=== PATIENT | female | born 1980 | race African-American/Black ===

== ENCOUNTER 2017-11-30 13:40 | Emergency (ER) | payer OTHER ==
[2017-11-30 14:10] VITALS: BP 100/63; PULSE 68; TEMP 98.6; BMI 23.9
[2017-11-30] MEDS ORDERED: METOCLOPRAMIDE HCL INJECTION 10 MG/2 ML VIAL IM ONE (14:24)
[2017-11-30] MEDS ORDERED: ACETAMINOPHEN 500 MG TABLET (FP) PO ONE (14:25)
[2017-11-30] MEDS ORDERED: ACETAMINOPHEN 500 MG TABLET (FP) ONE (14:27)
[2017-11-30] MEDS ORDERED: METOCLOPRAMIDE HCL INJECTION 10 MG/2 ML VIAL ONE (14:27)
--- NOTE | 2017-11-30 14:32 | PDOC ---
History of Present Illness - General Chief Complaint: Migraine Headache Stated Complaint: Migraine Headache Time Seen by Provider: 11/30/17 14:17 History Source: Patient Exam Limitations: Clinical Condition - History of Present Illness Initial Comments: 11/30/17 14:30 Patient with history of migraine disorder being followed by neurologist present with complain of severe migraine with nausea and photophobia. Patient reported she saw the neurologist 4 days ago and prescription was sent to the pharmacy for her migraines but didn't get to go pick it up for her migraines. Patient reports she is scheduled for MRI in 4 days for by the neurologist. denies any other symptoms Timing/Duration: 1 hour Severity: moderate Past History - Past Medical History Allergies/Adverse Reactions: Allergies Allergy/AdvReac Type Severity Reaction Status Date / Time No Known Allergies Allergy Verified 11/30/17 14:07 Home Medications: Ambulatory Orders levETIRAcetam [Keppra -] 500 mg PO BID #60 tablet 11/03/17 Sumatriptan Succinate [Imitrex] 25 mg PO TID PRN #20 tablet 11/30/17 COPD: No DVT: No Seizures: Yes (since 07/2017) - Immunization History Immunization Up to Date: Yes - Suicide/Smoking/Psychosocial Hx Smoking History: Former smoker Have you smoked in the past 12 months: No Information on smoking cessation initiated: Yes 'Breaking Loose' booklet given: 11/30/17 Hx Alcohol Use: No Drug/Substance Use Hx: No Substance Use Type: None Review of Systems - Review of Systems Able to Perform ROS?: Yes Is the patient limited Estonian proficient: No Constitutional: No: Chills, Diaphoresis, Fever, Loss of Appetite, Malaise, Night Sweats, Weakness, Weight Stable, Unintentional Wgt. Loss, Unexplained wgt Loss, Other HEENTM: No: Eye Pain, Blurred Vision, Tearing, Recent change in vision, Double Vision, Cataracts, Ear Pain, Ocular Prothesis, Ear Discharge, Nose Pain, Nose Congestion, Tinnitus, Nose Bleeding, Hearing Loss, Throat Pain, Throat Swelling , Mouth Pain, Dental Problems, Difficulty Swallowing, Mouth Swelling, Other Respiratory: No: Cough, Orthopnea, Shortness of Breath, SOB with Exertion, SOB at Rest, Stridor, Wheezing, Productive cough, Hemoptysis, Other Cardiac (ROS): No: Chest Pain, Edema, Irregular Heart Rate, Lightheadedness, Palpitations, Syncope, Chest Tightness, Other ABD/GI: Yes: Nausea. No: Abdominal Distended, Abd. Pain w/ defecation, Blood Streaked Bowels, Constipated, Diarrhea, Difficulty Swallowing, Poor Appetite, Poor Fluid Intake, Rectal Bleeding, Vomiting, Indigestion, Abdominal cramping, Tarry Stools, Other Musculoskeletal: No: Back Pain, Gout, Joint Pain, Joint Swelling, Muscle Pain, Muscle Weakness, Neck Pain, Joint Stiffness, Other Neurological: Yes: See HPI, Headache. No: Paresthesia, Pre-Existing Deficit, Weakness, Unsteady Gait, Dizziness All Other Systems: Reviewed and Negative *Physical Exam - Vital Signs Last Vital Signs Temp Pulse Resp BP Pulse Ox 98.6 F 68 16 100/63 99 11/30/17 14:07 11/30/17 14:07 11/30/17 14:07 11/30/17 14:07 11/30/17 14:07 - Physical Exam Comments: 11/30/17 14:33 GENERAL: Well developed, well nourished. Awake and alert. No acute distress. HEENT: Normocephalic, atraumatic. PERRLA, EOMI. No conjunctival pallor. Sclera are non- icteric. Moist mucous membranes. Oropharynx is clear. NECK: Supple. Full ROM. No JVD. Carotid pulses 2+ and symmetric, without bruits. No thyromegaly. No lymphadenopathy. CARDIOVASCULAR: Regular rate and rhythm. No murmurs, rubs, or gallops. Distal pulses are 2+ and symmetric. PULMONARY: No evidence of respiratory distress. Lungs clear to auscultation bilaterally. No wheezing, rales or rhonchi. ABDOMINAL: Soft. Non-tender. Non-distended. No rebound or guarding. No organomegaly. Normoactive bowel sounds. MUSCULOSKELETAL Normal range of motion at all joints. No bony deformities or tenderness. No CVA tenderness. EXTREMITIES: No cyanosis. No clubbing. No edema. No calf tenderness. SKIN: Warm and dry. Normal capillary refill. No rashes. No jaundice. NEUROLOGICAL: Alert, awake, appropriate. Cranial nerves 2-12 intact. No deficits to light touch and temperature in face, upper extremities and lower extremities. No motor deficits in the in face, upper extremities and lower extremities. Normoreflexic in the upper and lower extremities. Normal speech. Toes are down- going bilaterally. Gait is normal without ataxia. PSYCHIATRIC: Cooperative. Good eye contact. Appropriate mood and affect. General Appearance: Yes: Nourished, Appropriately Dressed. No: Apparent Distress Medical Decision Making - Medical Decision Making 11/30/17 14:34 Patient with history of migraines being followed by neurologist presenting with complain of migraines due to not picking up her prescribed medication for migraine which was given to her 4 days ago.patient with migraines with aura right now. Reglan 10 mg IM given and Tylenol 1 g for headache. Observe and Reassess after 15 minutes 11/30/17 15:49 Patient feeling much better now and migraine has resolved with medication. Patient stable for home discharge neurology follow-up *DC/Admit/Observation/Transfer Diagnosis at time of Disposition: Migraine with aura, not intractable Qualifiers: Status migrainosus presence: without status migrainosus Qualified Code(s): G43.109 - Migraine with aura, not intractable, without status migrainosus - Discharge Dispostion Disposition: HOME Condition at time of disposition: Good Decision to Admit order: No - Prescriptions Prescriptions: Sumatriptan Succinate [Imitrex] 25 mg PO TID PRN #20 tablet PRN Reason: migraine - Referrals - Patient Instructions Printed Discharge Instructions: Migraine Headaches (Alternative Therapy), Migraine -- Adult Additional Instructions: take medication as prescribed for migraines. follow-up with neurology as scheduled and machine pecan picker meds prescribed by neurologist from pharmacy. follow-up for MRI as ordered by neurologist - Post Discharge Activity
== END 2017-11-30 16:14 | disposition home or self-care (01) ==
LOC: JERFT 13:40
PROC: 3E023GC Introduction of Other Therapeutic Substance into Muscle, Percutaneous Approach (ICD-10-PCS; principal; 2017-11-30)
DX: G43.109 Migraine with aura, not intractable, without status migrainosus (principal); G40.909 Epilepsy, unspecified, not intractable, without status epilepticus
CPT/HCPCS: 99281-25